=== PATIENT | female | born 1965 | race Caucasian/White ===

== ENCOUNTER → 2020-03-09 12:55 | Outpatient (CLI) | payer OTHER, SELFPAY ==
--- NOTE | ~2020-03-09 | CT_ITS ---
EXAMINATION: CT chest wo con DATE: 03/09/2020 13:21 INDICATION: Solitary lung nodule TECHNIQUE: Computed tomography (CT) of the chest was performed without intravenous contrast. Automate d exposure control and iterative reconstruction technique were employed. Exam dose: 398.28 mGy-cm to chito exam DLP. COMPARISON: 01/07/2017 two-view chest FINDINGS: There are bilateral apical blebs. There are mild emphysematous changes of the lungs. There are several up to 4 mm groundglass nodules in the right upper lobe (series 4 image 37). Approximately 3 mm groundglass nodule of the superior segment of the right lower lobe (series 4 image 52). Smaller less defined groundglass opacities are noted scattered in the left upper lobe. Possible 4 mm fissural node of the left greater fissure (series 4 image 62) Otherwise no pulmonary infiltrate or consolidation. Normal heart size. No pericardial or pleural effusion. No hilar or mediastinal mass lesion or lymphadenopathy. No thoracic aortic aneurysm. Small sliding hiatal hernia. Normal morphology of the adrenal glands. Only the very upper margin of a prominent fracture deformity of L2 is included in this examination. Otherwise no suspicious skeletal finding including any osteolytic or osteoblastic lesion is noted. IMPRESSION: Occasional bilateral smaller 5 mm groundglass pulmonary opacities; recommend [address] chest follow-up Emphysema Small sliding hiatal hernia L2 fracture deformity Reviewed, dictated and finalized at [facility]. Reviewed, dictated and finalized at [facility].
== END ==
PROVIDERS: PCP Internal Medicine; Visit Provider Internal Medicine
DX: R91.1 Solitary pulmonary nodule (principal); K44.9 Diaphragmatic hernia without obstruction or gangrene; J43.9 Emphysema, unspecified
CPT/HCPCS: 71250

== ENCOUNTER → 2022-08-22 13:26 | Outpatient (CLI) | payer OTHER, SELFPAY ==
--- NOTE | ~2022-08-22 | CT_ITS ---
. EXAMINATION: CT IAC/mastoids BI wo con DATE: 08/22/2022 13:55 INDICATION: Right-sided tinnitus. TECHNIQUE: Computed tomography (CT) of the temporal bones was performed without intravenous contrast. Automated exposure control and iterative reconstruction technique were employed. The dose-length pro duct was 193.78 mGy-cm. COMPARISON: Neck CT 11/13/2019 FINDINGS: RIGHT TEMPORAL BONE: The internal auditory canal, cochlea, vestibule, semicircular canals, vestibular aqueduct, facial ner ve course, carotid canal, and jugular bulb are normal. There is material in the tympanic cavity inclu ding adjacent to the ossicles and in Prussak space. There are no definitive erosions of the ossicles or scutum. There is thickening of the tympanic membrane superiorly. The external auditory canal is no rmal. There is a right mastoid effusion. There is sclerosis of the brown of the mastoid air cells. LEFT TEMPORAL BONE: The internal auditory canal, cochlea, vestibule, semicircular canals, vestibular aqueduct, carotid ca nal, jugular bulb, facial nerve course, ossicles, Prussak space, scutum, tympanic membrane, external auditory canals, and mastoid air cells are normal. IMPRESSION: 1. Chronic right otomastoiditis. 2. Normal left temporal bone. Reviewed, dictated and finalized at [facility].
== END ==
PROVIDERS: PCP Internal Medicine
DX: H93.11 Tinnitus, right ear (principal)
CPT/HCPCS: 70480

== ENCOUNTER 2023-03-04 15:16 | Emergency (ER) | payer OTHER, SELFPAY ==
--- NOTE | 2023-03-04 16:17 | PC.NURSE ---
Patient asked about wait time and this RN informed her i was unable to answer that and she states she was going to come back tomorrow. This RN informed patient of risks of leaving and she verbalized understanding and left department
== END 2023-03-04 16:17 | disposition left against medical advice (07) ==
PROVIDERS: PCP Internal Medicine
DX: Z53.21 Procedure and treatment not carried out due to patient leaving prior to being seen by health care provider (principal)
CPT/HCPCS: 99199